=== PATIENT | male | born 1990 | race Caucasian/White ===

== ENCOUNTER 2019-05-09 10:04 | Emergency (ER) | payer OTHER ==
[2019-05-09] MEDS ORDERED: Lidocaine 1% w/Epinephrine 1:100K 20 ML VIAL ONE (10:14)
[2019-05-09] MEDS ORDERED: Adacel (T-DAP) 0.5 ML SYRINGE ONE (10:31)
== END 2019-05-09 10:38 | disposition home or self-care (01) ==
LOC: SCSER 10:04
DX: S51.012A Laceration without foreign body of left elbow, initial encounter (principal); W26.8XXA Contact with other sharp object(s), not elsewhere classified, initial encounter
CPT/HCPCS: 12002; 90471; 90715; J2001